=== PATIENT | male | born 1975 | race Caucasian/White ===

== ENCOUNTER 2018-05-10 20:20 | Emergency (ER) | payer BC ==
[~2018-05-10] VITALS: Ht 177.8 cm; Wt 124.7 kg
[2018-05-10] MEDS ORDERED: HYDROMORPHONE 2MG/ML 2 MG/ML ML IM STA (20:33)
[2018-05-10] MEDS ORDERED: ONDANSETRON HCL 4 MG ORAL DISINTEGRATING TAB PO ONE (21:15)
== END 2018-05-10 22:31 | disposition home or self-care (01) ==
LOC: ER 20:20
DX: M79.672 Pain in left foot (principal); M06.872 Other specified rheumatoid arthritis, left ankle and foot; M10.9 Gout, unspecified; R26.2 Difficulty in walking, not elsewhere classified; K51.90 Ulcerative colitis, unspecified, without complications; L40.9 Psoriasis, unspecified
CPT/HCPCS: 96372; 99282; J1170

== ENCOUNTER 2024-11-04 08:06 | Inpatient (IN) | payer OTHER ==
[~2024-11-04] VITALS: Ht 177.8 cm; Wt 124.7 kg
[2024-11-04] VITALS (7 sets, daily range): BP systolic 106–113; BP diastolic 72–76; PULSE 74–90; RESP 14–20; TEMP 98–99.2; O2SAT 96–100
[2024-11-04 08:36] LABS: BASOPHILS # (AUTO) 0.1 (0.0-0.1); BASOPHILS % 0.7 % (0.0-1.0); EOSINOPHILS % 0.1 % (0.0-6.0); HEMATOCRIT 47.2 % (38.2-49.6); HEMOGLOBIN 16.5 g/dL (14.0-18.0); LYMPHOCYTES # (AUTO) 0.9 (1.0-3.2); LYMPHOCYTES % 5.4 % (18.0-39.1); MEAN CORPUSCULAR HEMOGLOBIN 32.9 pg (28-32); MEAN CORPUSCULAR VOLUME 94.2 fL (81-99); MONOCYTES # (AUTO) 1.1 (0.2-0.8); NEUTROPHILS # (AUTO) 12.9 (2.1-6.9); NEUTROPHILS % 80.3 % (38.7-80.0); PLATELET COUNT 307 x10e3/uL (140-360); RED BLOOD COUNT 5.01 x10e6/uL (4.3-5.7); RED CELL DISTRIBUTION WIDTH 12.9 % (11.7-14.4); WHITE BLOOD COUNT 15.99 x10e3/uL (4.8-10.8)
[2024-11-04] MEDS ORDERED: LACTATED RINGER'S 3,000 ML ONE (08:38)
[2024-11-04] MEDS: ACETAMINOPHEN 1000 MG/100 ML IV ONE (08:43)
[2024-11-04] MEDS: CEFEPIME 2 GM in SODIUM CHLORIDE 0.9% 100 ML IV ONE (08:59)
[2024-11-04 09:00] LABS: CORONAVIRUS COVID-19 AG NEGATIVE (NEGATIVE); INFLUENZA A AG NEGATIVE (NEGATIVE); INFLUENZA B AG NEGATIVE (NEGATIVE)
[2024-11-04 09:04] LABS: ALBUMIN 4.1 g/dL (3.5-5.0); ALBUMIN/GLOBULIN RATIO 1.1 (0.8-2.0); ANION GAP 19.5 mmol/L (8-16); CALCIUM 9.2 mg/dL (8.4-10.2); CREATININE, SERUM 1.91 mg/dL (0.72-1.25); POTASSIUM 3.5 mmol/L (3.5-5.1)
[2024-11-04] MEDS: ONDANSETRON HCL INJ 2MG/ML 2ML 2 MG/ML VIAL IV STA (09:56)
[2024-11-04] MEDS: KETOROLAC TROMETHAMINE 30 MG/ML VIAL IV STA (10:23)
[2024-11-04] MEDS ORDERED: NEBIVOLOL HCL10 MG (11:24)
[2024-11-04] MEDS ORDERED: OMEPRAZOLE20 MG (11:24)
[2024-11-04] MEDS ORDERED: RINVOQ ER15 MG (11:24)
[2024-11-04] MEDS ORDERED: PREDNISONE1 MG (11:24)
[2024-11-04] MEDS ORDERED: OLMESARTAN MEDO40 MG (11:24)
[2024-11-04] MEDS ORDERED: FEBUXOSTAT40 MG (11:24)
[2024-11-04] MEDS ORDERED: NABUMETONE750 MG (11:24)
[2024-11-04] MEDS ORDERED: ROSUVASTATIN CA10 MG (11:24)
[2024-11-04] MEDS ORDERED: PREDNISONE2.5 MG (11:30)
[2024-11-04 11:46] LABS: BILIRUBIN,URINE SMALL (NEGATIVE); CLARITY,URINE CLEAR (CLEAR); COLOR,URINE YELLOW (YELLOW); GLUCOSE, URINE NEGATIVE (NEGATIVE); KETONES,URINE 1+ (NEGATIVE); LEUKOCYTE ESTERASE ,URINE NEGATIVE (NEGATIVE); NITRITE,URINE NEGATIVE (NEGATIVE); PH,URINE 5.5 (5 - 7); PROTEIN,URINE DIPSTICK >=300 (NEGATIVE); URINE UROBILINOGEN 0.2 mg/dL (0.2 - 1)
[2024-11-04 12:17] LABS: BACTERIA,URINE MODERATE /HPF; EPITHELIAL CELLS,URINE RARE /LPF
[2024-11-04] MEDS ORDERED: POLYETHYLENE GLYCOL 3350 17 GM PACK PO PRN (13:00)
[2024-11-04] MEDS: HEPARIN SOD (PORCINE) 5,000 UNIT/ML VIAL SC SCH (14:30)
[2024-11-04] MEDS: ACETAMINOPHEN 325 MG TAB PO PRN (14:33)
[2024-11-04] MEDS: LACTATED RINGER'S 1,000 ML INJ SCH (14:56)
[2024-11-04] MEDS: METRONIDAZOLE 500MG/NS 100ML 100 ML IV SCH (14:57)
[2024-11-04 19:08] LABS: CDIFF TOX QUIK CHEK NEGATIVE (NEGATIVE)
[2024-11-04 19:11] LABS: CDIFF AG QUIK CHEK **POSITIVE** (NEGATIVE)
[2024-11-04 19:47] LABS: HIV 1&2 AB SCREEN NON-REACTIVE (NONREACTIVE); HIV- 1 P24 AG SCREEN NON-REACTIVE (NONREACTIVE)
[2024-11-04] MEDS: Vancomycin IV 1 GM in SODIUM CHLORIDE 0.9% 250ML 250 ML IV ONE (20:13)
[2024-11-04] MEDS: VANCOMYCIN HCL 125 MG CAPSULE PO SCH (20:13)
[2024-11-04] MEDS: ACYCLOVIR SODIUM 1,000 MG in SODIUM CHLORIDE 0.9% 250ML 250 ML IV SCH (23:25)
[2024-11-05] VITALS (11 sets, daily range): BP systolic 114–127; BP diastolic 64–78; PULSE 63–80; RESP 18–20; TEMP 97.9–99.1; O2SAT 96–100
[2024-11-05] MEDS: Ampicillin INJ 2 GM in SODIUM CHLORIDE 0.9% 100 ML IV SCH ×2 (01:04→12:00)
[2024-11-05 08:24] LABS: BASOPHILS % 0.3 % (0.0-1.0); EOSINOPHILS % 0.3 % (0.0-6.0); HEMATOCRIT 36.2 % (38.2-49.6); HEMOGLOBIN 12.4 g/dL (14.0-18.0); LYMPHOCYTES # (AUTO) 0.7 (1.0-3.2); LYMPHOCYTES % 8.5 % (18.0-39.1); MEAN CORPUSCULAR HEMOGLOBIN 32.8 pg (28-32); MEAN CORPUSCULAR HGB CONC 34.3 g/dL (31-35); MEAN CORPUSCULAR VOLUME 95.8 fL (81-99); MONOCYTES # (AUTO) 0.9 (0.2-0.8); MONOCYTES % 10.1 % (4.4-11.3); NEUTROPHILS # (AUTO) 6.8 (2.1-6.9); NEUTROPHILS % 78.3 % (38.7-80.0); PLATELET COUNT 196 x10e3/uL (140-360); RED BLOOD COUNT 3.78 x10e6/uL (4.3-5.7); RED CELL DISTRIBUTION WIDTH 13.2 % (11.7-14.4); WHITE BLOOD COUNT 8.72 x10e3/uL (4.8-10.8)
[2024-11-05 08:45] LABS: ALBUMIN 2.9 g/dL (3.5-5.0); ANION GAP 15.9 mmol/L (8-16); BILIRUBIN,TOTAL 0.5 mg/dL (0.2-1.2); CREATININE, SERUM 1.17 mg/dL (0.72-1.25); MAGNESIUM 1.7 MG/DL (1.3-2.1); POTASSIUM 3.9 mmol/L (3.5-5.1); TOTAL PROTEIN 5.8 g/dL (6.5-8.1)
[2024-11-05] MEDS ORDERED: DOCUSATE SODIUM 100 MG CAP PO SCH (09:00)
[2024-11-05] MEDS ORDERED: Vancomycin IV 1 GM in SODIUM CHLORIDE 0.9% 250ML 250 ML IV SCH (12:00)
[2024-11-05] MEDS: KETOROLAC TROMETHAMINE 30 MG/ML VIAL IV PRN (12:12)
[2024-11-05] MEDS: ACYCLOVIR SODIUM 750 MG in SODIUM CHLORIDE 0.9% 250ML 250 ML IV SCH (13:19)
[2024-11-05] MEDS: Vancomycin IV 1 GM in SODIUM CHLORIDE 0.9% 250ML 250 ML IV SCH (15:43)
[2024-11-05] MEDS: CEFTRIAXONE 2 GM in SODIUM CHLORIDE 0.9% 100 ML IV SCH (21:22)
[2024-11-06 03:20] VITALS: BP 108/53; PULSE 63; RESP 18; TEMP 98; O2SAT 99
[2024-11-06 06:22] LABS: BASOPHILS % 0.5 % (0.0-1.0); EOSINOPHILS # (AUTO) 0.1 (0.0-0.4); HEMATOCRIT 33.8 % (38.2-49.6); HEMOGLOBIN 11.7 g/dL (14.0-18.0); LYMPHOCYTES % 15.9 % (18.0-39.1); MEAN CORPUSCULAR HEMOGLOBIN 33.5 pg (28-32); MEAN CORPUSCULAR HGB CONC 34.6 g/dL (31-35); MEAN CORPUSCULAR VOLUME 96.8 fL (81-99); MONOCYTES # (AUTO) 0.7 (0.2-0.8); MONOCYTES % 12.2 % (4.4-11.3); NEUTROPHILS # (AUTO) 4.1 (2.1-6.9); NEUTROPHILS % 67.9 % (38.7-80.0); PLATELET COUNT 179 x10e3/uL (140-360); RED BLOOD COUNT 3.49 x10e6/uL (4.3-5.7); WHITE BLOOD COUNT 5.98 x10e3/uL (4.8-10.8)
[2024-11-06 07:04] LABS: ANION GAP 12.7 mmol/L (8-16); BILIRUBIN,TOTAL 0.3 mg/dL (0.2-1.2); CALCIUM 7.9 mg/dL (8.4-10.2); CREATININE, SERUM 0.86 mg/dL (0.72-1.25); MAGNESIUM 1.9 MG/DL (1.3-2.1); POTASSIUM 3.7 mmol/L (3.5-5.1); TOTAL PROTEIN 5.2 g/dL (6.5-8.1)
[2024-11-06 07:29] LABS: ALBUMIN 2.6 g/dL (3.5-5.0)
[2024-11-06 08:00] VITALS: BP 111/72; PULSE 66; RESP 21; TEMP 98.3; O2SAT 97
[2024-11-06 09:00] VITALS: BP 111/72; PULSE 66; RESP 21; TEMP 98.3; O2SAT 97
[2024-11-06] MEDS: LACTATED RINGER'S 1,000 ML ONE (09:21)
[2024-11-06 12:00] VITALS: BP 130/79; PULSE 62; RESP 20; TEMP 98.4; O2SAT 97
[2024-11-06] MEDS: ACETAMIN/BUTALBITAL/CAFFEINE TAB PO PRN (12:26)
[2024-11-06 16:00] VITALS: BP 117/80; PULSE 59; RESP 18; TEMP 98.4; O2SAT 98
[2024-11-06 20:00] VITALS: BP 117/80; PULSE 59; RESP 18; TEMP 98.4; O2SAT 98
[2024-11-07 04:10] VITALS: BP 122/68; PULSE 61; RESP 17; TEMP 98.4; O2SAT 97
[2024-11-07 06:11] LABS: BASOPHILS % 0.6 % (0.0-1.0); EOSINOPHILS # (AUTO) 0.2 (0.0-0.4); EOSINOPHILS % 3.3 % (0.0-6.0); HEMATOCRIT 35.1 % (38.2-49.6); HEMOGLOBIN 11.9 g/dL (14.0-18.0); LYMPHOCYTES # (AUTO) 1.2 (1.0-3.2); LYMPHOCYTES % 22.5 % (18.0-39.1); MEAN CORPUSCULAR HEMOGLOBIN 33.1 pg (28-32); MEAN CORPUSCULAR HGB CONC 33.9 g/dL (31-35); MEAN CORPUSCULAR VOLUME 97.5 fL (81-99); MONOCYTES # (AUTO) 0.7 (0.2-0.8); MONOCYTES % 13.7 % (4.4-11.3); NEUTROPHILS % 58.9 % (38.7-80.0); PLATELET COUNT 215 x10e3/uL (140-360); RED CELL DISTRIBUTION WIDTH 12.9 % (11.7-14.4); WHITE BLOOD COUNT 5.12 x10e3/uL (4.8-10.8)
[2024-11-07 06:36] LABS: ALANINE AMINOTRANSFERASE 59 IU/L (0-55); ALBUMIN 2.8 g/dL (3.5-5.0); ALKALINE PHOSPHATASE 27 IU/L (40-150); ANION GAP 13.6 mmol/L (8-16); BILIRUBIN,TOTAL 0.4 mg/dL (0.2-1.2); BLOOD UREA NITROGEN < 5 mg/dL (7-26); CALCIUM 8.4 mg/dL (8.4-10.2); CARBON DIOXIDE 21 mmol/L (22-29); CHLORIDE 110 mmol/L (98-107); CREATININE, SERUM 0.84 mg/dL (0.72-1.25); EST GLOMERULAR FILTRATION RATE 108 ML/MIN (>=60); GLUCOSE 87 mg/dL (74-118); POTASSIUM 3.6 mmol/L (3.5-5.1); SODIUM 141 mmol/L (136-145); TOTAL PROTEIN 5.7 g/dL (6.5-8.1)
[2024-11-07 06:38] LABS: BUN/CREATININE RATIO 6 (6-25)
[2024-11-07 08:10] VITALS: BP 118/78; PULSE 64; RESP 18; TEMP 98.6; O2SAT 97
[2024-11-07 11:20] VITALS: BP 122/62; PULSE 60; RESP 18; TEMP 98.1; O2SAT 97
[2024-11-07 15:50] VITALS: BP 130/84; PULSE 62; RESP 18; TEMP 97.9; O2SAT 100
[2024-11-07 20:00] VITALS: BP 136/90; PULSE 63; RESP 18; TEMP 98.1; O2SAT 100
[2024-11-08] VITALS: BP 137/70; PULSE 65; RESP 18; TEMP 98.9; O2SAT 100
[2024-11-08 04:00] VITALS: BP 138/69; PULSE 68; RESP 20; TEMP 98.2; O2SAT 100
[2024-11-08 05:36] LABS: BASOPHILS % 0.3 % (0.0-1.0); EOSINOPHILS # (AUTO) 0.2 (0.0-0.4); EOSINOPHILS % 2.2 % (0.0-6.0); HEMATOCRIT 32.3 % (38.2-49.6); HEMOGLOBIN 10.9 g/dL (14.0-18.0); LYMPHOCYTES % 14.3 % (18.0-39.1); MEAN CORPUSCULAR HEMOGLOBIN 32.5 pg (28-32); MEAN CORPUSCULAR HGB CONC 33.7 g/dL (31-35); MEAN CORPUSCULAR VOLUME 96.4 fL (81-99); MONOCYTES # (AUTO) 0.9 (0.2-0.8); MONOCYTES % 12.7 % (4.4-11.3); NEUTROPHILS % 69.7 % (38.7-80.0); PLATELET COUNT 208 x10e3/uL (140-360); RED BLOOD COUNT 3.35 x10e6/uL (4.3-5.7); RED CELL DISTRIBUTION WIDTH 12.8 % (11.7-14.4); WHITE BLOOD COUNT 7.15 x10e3/uL (4.8-10.8)
[2024-11-08 06:17] LABS: ALANINE AMINOTRANSFERASE 55 IU/L (0-55); ALBUMIN 2.7 g/dL (3.5-5.0); ALKALINE PHOSPHATASE 32 IU/L (40-150); ANION GAP 12.2 mmol/L (8-16); BILIRUBIN,TOTAL 0.6 mg/dL (0.2-1.2); BLOOD UREA NITROGEN < 5 mg/dL (7-26); CALCIUM 8.1 mg/dL (8.4-10.2); CARBON DIOXIDE 22 mmol/L (22-29); CHLORIDE 106 mmol/L (98-107); EST GLOMERULAR FILTRATION RATE 110 ML/MIN (>=60); GLUCOSE 98 mg/dL (74-118); SODIUM 137 mmol/L (136-145); TOTAL PROTEIN 5.5 g/dL (6.5-8.1)
[2024-11-08 06:21] LABS: POTASSIUM 3.2 mmol/L (3.5-5.1)
[2024-11-08 06:22] LABS: BUN/CREATININE RATIO 6 (6-25)
[2024-11-08] MEDS: POTASSIUM CHLORIDE 10MEQ EA PO ONE (08:37)
[2024-11-08 09:07] VITALS: BP 135/87; PULSE 71; RESP 20; TEMP 99.1; O2SAT 97
[2024-11-08 10:00] LABS: INR 0.95; PROTHROMBIN TIME 13.3 seconds (11.9-14.5)
[2024-11-08 10:39] VITALS: BP 135/87; PULSE 71; RESP 20; TEMP 99.1; O2SAT 97
[2024-11-08 10:56] LABS: HEPATITIS A ANTIBODY IGM (P) Negative; HEPATITIS B CORE AB TOTAL Negative; HEPATITIS B CORE IGM (P) Negative; HEPATITIS B SURFACE AG (P) Negative
[2024-11-08 10:57] LABS: HEPATITIS C ANTIBODY Non Reactive
[2024-11-08] MEDS ORDERED: LIDOCAINE HCL 1% 30ML-PF VIAL ONE (11:16)
[2024-11-08] MEDS ORDERED: DICLOFENAC SOD 1% GEL 100 GM TUBE TP PRN (11:45)
[2024-11-08] MEDS ORDERED: Morphine 4mg INJECTION 4 MG/ML INJ IV PRN (13:30)
[2024-11-08] MEDS: ONDANSETRON HCL INJ 2MG/ML 2ML 2 MG/ML VIAL IV PRN (13:48)
[2024-11-08] MEDS: HYDROMORPHONE 2MG/ML IV PRN (13:49)
[2024-11-08 16:35] VITALS: BP 138/81; PULSE 81; RESP 20; TEMP 98.6; O2SAT 98
[2024-11-08] MEDS: PREDNISONE 20 MG TAB PO ONE ×2 (18:07→20:21)
[2024-11-08 20:00] VITALS: BP 143/89; PULSE 81; RESP 18; TEMP 98.3; O2SAT 97
[2024-11-09] VITALS (7 sets, daily range): BP systolic 118–143; BP diastolic 69–81; PULSE 66–79; RESP 17–20; TEMP 97.2–99.4; O2SAT 93–98
[2024-11-09 06:02] LABS: BASOPHILS % 0.2 % (0.0-1.0); HEMATOCRIT 33.4 % (38.2-49.6); HEMOGLOBIN 11.6 g/dL (14.0-18.0); LYMPHOCYTES # (AUTO) 0.5 (1.0-3.2); LYMPHOCYTES % 3.4 % (18.0-39.1); MEAN CORPUSCULAR HEMOGLOBIN 33.2 pg (28-32); MEAN CORPUSCULAR HGB CONC 34.7 g/dL (31-35); MEAN CORPUSCULAR VOLUME 95.7 fL (81-99); MONOCYTES # (AUTO) 0.6 (0.2-0.8); MONOCYTES % 4.4 % (4.4-11.3); NEUTROPHILS # (AUTO) 12.4 (2.1-6.9); NEUTROPHILS % 90.6 % (38.7-80.0); PLATELET COUNT 211 x10e3/uL (140-360); RED BLOOD COUNT 3.49 x10e6/uL (4.3-5.7); RED CELL DISTRIBUTION WIDTH 12.6 % (11.7-14.4); WHITE BLOOD COUNT 13.65 x10e3/uL (4.8-10.8)
[2024-11-09 06:40] LABS: ANION GAP 14.1 mmol/L (8-16); BLOOD UREA NITROGEN < 5 mg/dL (7-26); CALCIUM 8.4 mg/dL (8.4-10.2); CARBON DIOXIDE 20 mmol/L (22-29); CHLORIDE 103 mmol/L (98-107); CREATININE, SERUM 0.86 mg/dL (0.72-1.25); EST GLOMERULAR FILTRATION RATE 107 ML/MIN (>=60); GLUCOSE 165 mg/dL (74-118); MAGNESIUM 1.4 MG/DL (1.3-2.1); POTASSIUM 4.1 mmol/L (3.5-5.1); SODIUM 133 mmol/L (136-145)
[2024-11-09 06:41] LABS: BUN/CREATININE RATIO 6 (6-25); CALCIUM IONIZED 1.1 mmol/L (1.09-1.30)
[2024-11-09 09:19] LABS: ABG HCO3 22 mmol/L (22-26); ABG PCO2 35 mmHg (35-45); ABG PH 7.39 (7.35-7.45); ABG PO2 178 mmHg (80-105); ABG TCO2 23
[2024-11-09] MEDS: PREDNISONE 20 MG TAB PO SCH (09:22)
[2024-11-09] MEDS ORDERED: LIDOCAINE HCL 1% 30ML-PF VIAL ONE (11:30)
[2024-11-09] MEDS ORDERED: MIDAZOLAM HCL 2 MG/2 ML VIAL ONE ×2 (11:39→13:28)
[2024-11-09] MEDS ORDERED: FENTANYL CITRATE/PF 100MCG/2 ML INJ ONE ×2 (11:39→13:28)
[2024-11-09] MEDS ORDERED: SODIUM CHLORIDE 0.9% 500ML 500 ML ONE (11:39)
[2024-11-09] MEDS: LIDOCAINE HCL 2% LOCAL 20 ML VIAL INJ ONE (12:27)
[2024-11-09] MEDS: DEXAMETHASONE 10MG/ML PF INJ IV ONE (12:28)
[2024-11-09] MEDS: MAGNESIUM SULFATE 2GM/50ML 50 ML IV ONE (14:10)
[2024-11-09 14:58] LABS: TOTAL PROTEIN,CSF 81.8 mg/dL (15-40)
[2024-11-09 15:13] LABS: APPEARANCE,CSF HAZY (CLEAR)
[2024-11-09 15:14] LABS: COLOR,CSF RED (COLORLESS); TUBE NUMBER 3
[2024-11-09 15:30] LABS: LYMPHOCYTES,CSF 28 % (40-80); MONOCYTES,CSF 10 %; NEUTROPHILS,CSF 62 % (0-6); TOTAL CELLS COUNTED (DIFF) 50
[2024-11-09 15:33] LABS: WHITE BLOOD CELL,CSF 8 cells/uL (0-5)
[2024-11-09 15:34] LABS: RED BLOOD CELL,CSF 2000 cells/uL (0-10)
[2024-11-09] MEDS: ACYCLOVIR SODIUM INJ 1,000 MG in SODIUM CHLORIDE 0.9% 250ML 250 ML IV SCH (21:35)
[2024-11-10] VITALS (7 sets, daily range): BP systolic 122–149; BP diastolic 65–82; PULSE 51–71; RESP 18–20; TEMP 97.7–98.4; O2SAT 97–100
[2024-11-10 05:45] LABS: BASOPHILS % 0.2 % (0.0-1.0); EOSINOPHILS % 0.1 % (0.0-6.0); HEMATOCRIT 32.9 % (38.2-49.6); HEMOGLOBIN 11.3 g/dL (14.0-18.0); LYMPHOCYTES # (AUTO) 0.9 (1.0-3.2); LYMPHOCYTES % 4.6 % (18.0-39.1); MEAN CORPUSCULAR HEMOGLOBIN 33.3 pg (28-32); MEAN CORPUSCULAR HGB CONC 34.3 g/dL (31-35); MEAN CORPUSCULAR VOLUME 97.1 fL (81-99); MONOCYTES # (AUTO) 0.9 (0.2-0.8); MONOCYTES % 4.7 % (4.4-11.3); NEUTROPHILS # (AUTO) 16.7 (2.1-6.9); NEUTROPHILS % 88.8 % (38.7-80.0); PLATELET COUNT 248 x10e3/uL (140-360); RED BLOOD COUNT 3.39 x10e6/uL (4.3-5.7); RED CELL DISTRIBUTION WIDTH 12.6 % (11.7-14.4); WHITE BLOOD COUNT 18.77 x10e3/uL (4.8-10.8)
[2024-11-10 06:07] LABS: ALBUMIN 2.8 g/dL (3.5-5.0); ALBUMIN/GLOBULIN RATIO 0.8 (0.8-2.0); ANION GAP 16.6 mmol/L (8-16); CALCIUM 8.2 mg/dL (8.4-10.2); CREATININE, SERUM 0.88 mg/dL (0.72-1.25); MAGNESIUM 1.9 MG/DL (1.3-2.1); POTASSIUM 3.6 mmol/L (3.5-5.1); TOTAL PROTEIN 6.2 g/dL (6.5-8.1)
[2024-11-10 06:24] LABS: BILIRUBIN,TOTAL 0.2 mg/dL (0.2-1.2)
[2024-11-10] MEDS: FEBUXOSTAT 80 MG TAB PO SCH (08:39)
[2024-11-10] MEDS: KETOROLAC TROMETHAMINE 30 MG/ML VIAL IV PRN (15:17)
[2024-11-11] VITALS (7 sets, daily range): BP systolic 112–157; BP diastolic 59–85; PULSE 50–58; RESP 17–19; TEMP 97.7–98.2; O2SAT 96–100
[2024-11-11 06:45] LABS: BASOPHILS % 0.1 % (0.0-1.0); EOSINOPHILS % 0.1 % (0.0-6.0); HEMATOCRIT 31.1 % (38.2-49.6); HEMOGLOBIN 10.5 g/dL (14.0-18.0); LYMPHOCYTES % 6.2 % (18.0-39.1); MEAN CORPUSCULAR HEMOGLOBIN 33.1 pg (28-32); MEAN CORPUSCULAR HGB CONC 33.8 g/dL (31-35); MEAN CORPUSCULAR VOLUME 98.1 fL (81-99); MONOCYTES # (AUTO) 1.2 (0.2-0.8); MONOCYTES % 7.3 % (4.4-11.3); NEUTROPHILS # (AUTO) 13.1 (2.1-6.9); NEUTROPHILS % 80.6 % (38.7-80.0); PLATELET COUNT 307 x10e3/uL (140-360); RED BLOOD COUNT 3.17 x10e6/uL (4.3-5.7); RED CELL DISTRIBUTION WIDTH 12.8 % (11.7-14.4)
[2024-11-11 06:53] LABS: ANION GAP 11.9 mmol/L (8-16); CALCIUM 8.2 mg/dL (8.4-10.2); CREATININE, SERUM 0.86 mg/dL (0.72-1.25); POTASSIUM 3.9 mmol/L (3.5-5.1)
[2024-11-11 10:06] LABS: BAND NEUTROPHILS % (MANUAL) 2 %; LYMPHOCYTES % (MANUAL) 13 % (19-48); METAMYELOCYTES % (MANUAL) 1 % (0-0); MONOCYTES % (MANUAL) 1 % (3.4-9.0); MYELOCYTES % (MANUAL) 2 % (0-0); NEUTROPHILS % (MANUAL) 81 % (40-74); PLATELET ESTIMATE ADEQUATE; PLATELET MORPHOLOGY COMMENT NORMAL; RBC MORPHOLOGY COMMENT NORMAL
[2024-11-11 13:12] LABS: WEST NILE VIRUS IGG CSF Negative (Negative)
[2024-11-11 13:36] LABS: WEST NILE VIRUS IGM CSF Negative (Negative)
[2024-11-11 15:13] LABS: IGG/ALB RATIO CSF 0.18 (0.00-0.25); SYNTHESIS RATE IGG CSF 19.8 mg/day (-9.9 TO +3.3)
[2024-11-11 15:17] LABS: CSF/SERUM ALBUMIN INDEX 14 (0-8)
[2024-11-11 15:18] LABS: VDRL CSF Non Reactive (Non Rea:<1:1)
[2024-11-12] VITALS (8 sets, daily range): BP systolic 113–180; BP diastolic 53–91; PULSE 50–73; RESP 17–20; TEMP 97.3–98.3; O2SAT 95–98
[2024-11-12 05:53] LABS: BASOPHILS # (AUTO) 0.1 (0.0-0.1); BASOPHILS % 0.3 % (0.0-1.0); HEMOGLOBIN 10.7 g/dL (14.0-18.0); LYMPHOCYTES # (AUTO) 1.6 (1.0-3.2); LYMPHOCYTES % 9.5 % (18.0-39.1); MEAN CORPUSCULAR HEMOGLOBIN 32.8 pg (28-32); MEAN CORPUSCULAR HGB CONC 33.4 g/dL (31-35); MEAN CORPUSCULAR VOLUME 98.2 fL (81-99); MONOCYTES # (AUTO) 1.3 (0.2-0.8); MONOCYTES % 7.9 % (4.4-11.3); NEUTROPHILS # (AUTO) 12.1 (2.1-6.9); NEUTROPHILS % 73.8 % (38.7-80.0); PLATELET COUNT 359 x10e3/uL (140-360); RED BLOOD COUNT 3.26 x10e6/uL (4.3-5.7); RED CELL DISTRIBUTION WIDTH 12.8 % (11.7-14.4); WHITE BLOOD COUNT 16.44 x10e3/uL (4.8-10.8)
[2024-11-12 06:21] LABS: ANION GAP 10.8 mmol/L (8-16); CREATININE, SERUM 0.81 mg/dL (0.72-1.25); POTASSIUM 3.8 mmol/L (3.5-5.1)
[2024-11-12] MEDS: HYDRALAZINE HCL 20 MG/ML VIAL IV PRN (13:28)
[2024-11-12 14:06] LABS: LYME PCR CSF Negative (Negative)
[2024-11-12] MEDS: VANCOMYCIN HCL 125 MG CAPSULE PO SCH (15:20)
[2024-11-12 17:13] LABS: HSV 1 BY PCR Negative; HSV 2 BY PCR Negative
[2024-11-13 03:37] VITALS: BP 218/103; PULSE 81; RESP 17; TEMP 98.1; O2SAT 96
[2024-11-13 04:20] VITALS: BP 190/89; PULSE 59
[2024-11-13] MEDS: HYDRALAZINE HCL 20 MG/ML VIAL IV STA (05:56)
[2024-11-13 06:33] LABS: BASOPHILS # (AUTO) 0.1 (0.0-0.1); BASOPHILS % 0.5 % (0.0-1.0); EOSINOPHILS % 0.1 % (0.0-6.0); HEMATOCRIT 32.2 % (38.2-49.6); LYMPHOCYTES # (AUTO) 1.4 (1.0-3.2); LYMPHOCYTES % 9.5 % (18.0-39.1); MEAN CORPUSCULAR HEMOGLOBIN 32.9 pg (28-32); MEAN CORPUSCULAR HGB CONC 34.2 g/dL (31-35); MEAN CORPUSCULAR VOLUME 96.4 fL (81-99); MONOCYTES % 6.7 % (4.4-11.3); NEUTROPHILS # (AUTO) 10.9 (2.1-6.9); NEUTROPHILS % 72.6 % (38.7-80.0); PLATELET COUNT 358 x10e3/uL (140-360); RED BLOOD COUNT 3.34 x10e6/uL (4.3-5.7); RED CELL DISTRIBUTION WIDTH 12.7 % (11.7-14.4); WHITE BLOOD COUNT 15.03 x10e3/uL (4.8-10.8)
[2024-11-13 06:50] LABS: ALBUMIN 2.6 g/dL (3.5-5.0); ALBUMIN/GLOBULIN RATIO 0.8 (0.8-2.0); ANION GAP 12.8 mmol/L (8-16); BILIRUBIN,TOTAL 0.4 mg/dL (0.2-1.2); CALCIUM 8.5 mg/dL (8.4-10.2); CREATININE, SERUM 0.81 mg/dL (0.72-1.25); MAGNESIUM 1.9 MG/DL (1.3-2.1); POTASSIUM 3.8 mmol/L (3.5-5.1); TOTAL PROTEIN 5.8 g/dL (6.5-8.1)
[2024-11-13 09:57] VITALS: BP 151/78; PULSE 57; RESP 17; TEMP 98.3; O2SAT 98
[2024-11-13 10:36] VITALS: BP 151/78; PULSE 57; RESP 17; TEMP 98.3; O2SAT 98
[2024-11-13 12:09] LABS: BAND NEUTROPHILS % (MANUAL) 1 %; EOSINOPHILS % (MANUAL) 3 % (0-7); LYMPHOCYTES % (MANUAL) 17 % (19-48); METAMYELOCYTES % (MANUAL) 1 % (0-0); MONOCYTES % (MANUAL) 2 % (3.4-9.0); NEUTROPHILS % (MANUAL) 72 % (40-74); REACTIVE LYMPHOCYTES 1
[2024-11-13 12:10] LABS: MYELOCYTES % (MANUAL) 3 % (0-0); PLATELET ESTIMATE ADEQUATE; PLATELET MORPHOLOGY COMMENT NORMAL
[2024-11-13 14:03] VITALS: BP 128/70; PULSE 54; RESP 17; TEMP 98.1; O2SAT 100
[2024-11-13 16:00] VITALS: BP 139/75; PULSE 48; RESP 18; TEMP 98.2; O2SAT 98
[2024-11-13] MEDS ORDERED: VANCOMYCIN HCL125 MG PO (18:23)
[2024-11-13] MEDS ORDERED: KETOROLAC TROME10 MG PO (18:23)
[2024-11-13] MEDS ORDERED: NURTEC ODT75 MG PO (18:23)
[2024-11-13] MEDS ORDERED: HYDRALAZINE HCL25 MG PO (18:29)
[2024-11-15 08:09] LABS: CRYPTOCOCCUS ANTIGEN CSF Negative
== END 2024-11-13 19:45 | disposition home or self-care (01) | DRG 97 ==
LOC: ER 08:18 → ERHOLD 12:24 → MED/SURG2 13:43
PROVIDERS: ADMIT Internal Medicine; ATTEND Internal Medicine
PROC: 009U3ZX Drainage of Spinal Canal, Percutaneous Approach, Diagnostic (ICD-10-PCS; principal; 2024-11-08)
PROC: B01B1ZZ Fluoroscopy of Spinal Cord using Low Osmolar Contrast (ICD-10-PCS; 2024-11-08)
PROC: 3E0U33Z Introduction of Anti-inflammatory into Joints, Percutaneous Approach (ICD-10-PCS; 2024-11-09)
PROC: 3E0U3BZ Introduction of Anesthetic Agent into Joints, Percutaneous Approach (ICD-10-PCS; 2024-11-09)
PROC: 009U3ZX Drainage of Spinal Canal, Percutaneous Approach, Diagnostic (ICD-10-PCS; 2024-11-09)
PROC: B01B1ZZ Fluoroscopy of Spinal Cord using Low Osmolar Contrast (ICD-10-PCS; 2024-11-09)
PROC: 02HV33Z Insertion of Infusion Device into Superior Vena Cava, Percutaneous Approach (ICD-10-PCS; 2024-11-10)
PROC: B548ZZA Ultrasonography of Superior Vena Cava, Guidance (ICD-10-PCS; 2024-11-10)
DX: G04.90 Encephalitis and encephalomyelitis, unspecified (principal); G93.41 Metabolic encephalopathy; N17.9 Acute kidney failure, unspecified; D84.821 Immunodeficiency due to drugs; A09 Infectious gastroenteritis and colitis, unspecified; K52.1 Toxic gastroenteritis and colitis; K50.919 Crohn's disease, unspecified, with unspecified complications; G43.909 Migraine, unspecified, not intractable, without status migrainosus; E86.0 Dehydration; L40.50 Arthropathic psoriasis, unspecified; I10 Essential (primary) hypertension; N30.90 Cystitis, unspecified without hematuria; M06.9 Rheumatoid arthritis, unspecified; I95.9 Hypotension, unspecified; T50.995A Adverse effect of other drugs, medicaments and biological substances, initial encounter; Y92.009 Unspecified place in unspecified non-institutional (private) residence as the place of occurrence of the external cause; E66.9 Obesity, unspecified; Z68.39 Body mass index [BMI] 39.0-39.9, adult; Z71.3 Dietary counseling and surveillance; G47.33 Obstructive sleep apnea (adult) (pediatric); M10.9 Gout, unspecified; E78.5 Hyperlipidemia, unspecified; R00.1 Bradycardia, unspecified; D72.829 Elevated white blood cell count, unspecified; T38.0X5A Adverse effect of glucocorticoids and synthetic analogues, initial encounter; T36.0X5A Adverse effect of penicillins, initial encounter; Y92.230 Patient room in hospital as the place of occurrence of the external cause; Z11.52 Encounter for screening for COVID-19; Z98.1 Arthrodesis status; Z79.52 Long term (current) use of systemic steroids; Z79.899 Other long term (current) drug therapy
CPT/HCPCS: 36415; 36569; 62328; 70450; 70551; 71045; 74176; 74470; 80048; 80053; 80202; 81001; 82040; 82140; 82784; 82805; 82945; 83518; 83605; 83630; 83735; 83916; 83993; 84157; 84443; 85025; 85610; 86592; 86704; 86789; 87040; 87045; 87070; 87086; 87177; 87205; 87324; 87327; 87328; 87390; 87449; 87476; 87529; 89051; 93005; 94799; 99152; 99284; G0433; G0435; J0360; J0692; J0696; J1171; J1644; J1885; J2003; J2250; J2405; J2470; J3475; J7040; J7050; J7512

== ENCOUNTER 2024-12-27 09:34 | Inpatient (IN) | payer OTHER ==
[2024-12-27] VITALS (8 sets, daily range): BP systolic 119–148; BP diastolic 56–80; PULSE 59–71; RESP 16–20; TEMP 97.7–98.7; O2SAT 98–100
[~2024-12-27] VITALS: Ht 177.8 cm; Wt 140.6 kg
[~2024-12-27 09:34] MED LIST: FEBUXOSTAT40 MG; HYDRALAZINE HCL25 MG PO; KETOROLAC TROME10 MG PO; NABUMETONE750 MG; NEBIVOLOL HCL10 MG; NURTEC ODT75 MG PO; OLMESARTAN MEDO40 MG; OMEPRAZOLE20 MG; PREDNISONE1 MG; PREDNISONE2.5 MG; RINVOQ ER15 MG; ROSUVASTATIN CA10 MG; VANCOMYCIN HCL125 MG PO
[2024-12-27 10:40] LABS: BASOPHILS # (AUTO) 0.1 (0.0-0.1); BASOPHILS % 0.5 % (0.0-1.0); EOSINOPHILS % 0.3 % (0.0-6.0); HEMATOCRIT 37.7 % (38.2-49.6); LYMPHOCYTES # (AUTO) 1.2 (1.0-3.2); LYMPHOCYTES % 11.3 % (18.0-39.1); MEAN CORPUSCULAR HEMOGLOBIN 32.6 pg (28-32); MEAN CORPUSCULAR HGB CONC 34.5 g/dL (31-35); MEAN CORPUSCULAR VOLUME 94.5 fL (81-99); MONOCYTES # (AUTO) 0.8 (0.2-0.8); MONOCYTES % 6.9 % (4.4-11.3); NEUTROPHILS # (AUTO) 8.6 (2.1-6.9); NEUTROPHILS % 77.9 % (38.7-80.0); PLATELET COUNT 330 x10e3/uL (140-360); RED BLOOD COUNT 3.99 x10e6/uL (4.3-5.7); RED CELL DISTRIBUTION WIDTH 13.2 % (11.7-14.4); WHITE BLOOD COUNT 10.99 x10e3/uL (4.8-10.8)
[2024-12-27 10:47] LABS: INR 0.92; PROTHROMBIN TIME 12.9 seconds (11.9-14.5)
[2024-12-27 10:48] LABS: PARTIAL THROMBOPLASTIN TIME 32.2 seconds (23.8-35.5)
[2024-12-27 10:56] LABS: ALBUMIN 3.9 g/dL (3.5-5.0); ALBUMIN/GLOBULIN RATIO 1.2 (0.8-2.0); ANION GAP 18.2 mmol/L (8-16); BILIRUBIN,TOTAL 0.5 mg/dL (0.2-1.2); CALCIUM 9.1 mg/dL (8.4-10.2); CREATININE, SERUM 0.91 mg/dL (0.72-1.25); POTASSIUM 4.2 mmol/L (3.5-5.1); TOTAL PROTEIN 7.2 g/dL (6.5-8.1)
[2024-12-27] MEDS: SODIUM CHLORIDE 0.9% 1000ML 1,000 ML IV STA (11:04)
[2024-12-27 11:45] LABS: CLARITY,URINE CLEAR (CLEAR); COLOR,URINE YELLOW (YELLOW); LEUKOCYTE ESTERASE ,URINE NEGATIVE (NEGATIVE); NITRITE,URINE NEGATIVE (NEGATIVE); PH,URINE 6 (5 - 7); PROTEIN,URINE DIPSTICK NEGATIVE (NEGATIVE)
[2024-12-27 11:46] LABS: BILIRUBIN,URINE NEGATIVE (NEGATIVE); GLUCOSE, URINE NEGATIVE (NEGATIVE); KETONES,URINE NEGATIVE (NEGATIVE); URINE UROBILINOGEN 0.2 mg/dL (0.2 - 1)
[2024-12-27 11:59] LABS: BACTERIA,URINE RARE /HPF; RBC,URINE 0-5 /HPF (0-5); WBC,URINE (MAN) 0-5 /HPF (0-5)
[2024-12-27] MEDS: SODIUM CHLORIDE 0.9% 1000ML 1,000 ML IV SCH (12:55)
[2024-12-27 13:17] LABS: TROPONIN I 0.016 ng/mL (0-0.300)
[2024-12-27] MEDS ORDERED: COLCHICINE0.6 M1 PO (15:25)
[2024-12-27] MEDS ORDERED: FENTANYL CITRATE/PF 100MCG/2 ML INJ ONE (15:53)
[2024-12-27 18:16] LABS: COLOR,CSF RED (COLORLESS)
[2024-12-27 18:17] LABS: APPEARANCE,CSF CLOUDY (CLEAR); TUBE NUMBER 2
[2024-12-27] MEDS: ONDANSETRON HCL INJ 2MG/ML 2ML 2 MG/ML VIAL IV STA (18:23)
[2024-12-27] MEDS: ACETAMINOPHEN/CODEINE 300MG - 30MG TAB PO ONE (18:24)
[2024-12-27 18:56] LABS: RED BLOOD CELL,CSF 24000 cells/uL (0-10); WHITE BLOOD CELL,CSF 79 cells/uL (0-5)
[2024-12-27 21:38] LABS: NEUTROPHILS,CSF 62 % (0-6)
[2024-12-27 21:39] LABS: LEPTOMENINGEAL,CSF 0 %; TOTAL CELLS COUNTED (DIFF) 100
[2024-12-27 21:41] LABS: LYMPHOCYTES,CSF 18 % (40-80); MONOCYTES,CSF 20 %; OTHER CELLS,CSF 0 %
[2024-12-27] MEDS: ACETAMINOPHEN/CODEINE 300MG - 30MG TAB PO PRN (21:52)
[2024-12-27] MEDS: CEFTRIAXONE 2 GM in SODIUM CHLORIDE 0.9% 100 ML IV SCH (21:52)
[2024-12-27 22:30] LABS: TOTAL PROTEIN,CSF 83.1 mg/dL (15-40)
[2024-12-27] MEDS ORDERED: ACYCLOVIR SODIUM 750 MG in SODIUM CHLORIDE 0.9% 250ML 250 ML IV SCH (23:00)
[2024-12-27] MEDS: TRAZODONE HCL 50 MG TAB PO SCH (23:49)
[2024-12-28] VITALS (8 sets, daily range): BP systolic 101–165; BP diastolic 66–93; PULSE 63–70; RESP 18–20; TEMP 97.1–98.9; O2SAT 94–100
[2024-12-28] MEDS ORDERED: BISACODYL 10 MG SUPP PR PRN (00:15)
[2024-12-28] MEDS ORDERED: POLYETHYLENE GLYCOL 3350 17 GM PACK PO PRN (00:15)
[2024-12-28] MEDS ORDERED: Ampicillin INJ 1 GM Vial ONE ×2 (00:29→00:32)
[2024-12-28] MEDS: Ampicillin INJ 2 GM in SODIUM CHLORIDE 0.9% 100 ML IV SCH ×2 (01:13→08:44)
[2024-12-28] MEDS: ACYCLOVIR SODIUM 750 MG in SODIUM CHLORIDE 0.9% 250ML 250 ML IV SCH ×2 (02:05→22:28)
[2024-12-28 02:09] LABS: TROPONIN I 0.007 ng/mL (0-0.300)
[2024-12-28] MEDS: KETOROLAC TROMETHAMINE 30 MG/ML VIAL IV PRN (02:28)
[2024-12-28 07:15] LABS: BASOPHILS % 0.5 % (0.0-1.0); EOSINOPHILS # (AUTO) 0.1 (0.0-0.4); EOSINOPHILS % 0.7 % (0.0-6.0); HEMATOCRIT 33.8 % (38.2-49.6); HEMOGLOBIN 11.3 g/dL (14.0-18.0); LYMPHOCYTES % 22.8 % (18.0-39.1); MEAN CORPUSCULAR HEMOGLOBIN 32.6 pg (28-32); MEAN CORPUSCULAR HGB CONC 33.4 g/dL (31-35); MEAN CORPUSCULAR VOLUME 97.4 fL (81-99); MONOCYTES # (AUTO) 1.1 (0.2-0.8); MONOCYTES % 12.7 % (4.4-11.3); NEUTROPHILS # (AUTO) 5.3 (2.1-6.9); NEUTROPHILS % 61.8 % (38.7-80.0); PLATELET COUNT 271 x10e3/uL (140-360); RED BLOOD COUNT 3.47 x10e6/uL (4.3-5.7); RED CELL DISTRIBUTION WIDTH 13.5 % (11.7-14.4); WHITE BLOOD COUNT 8.56 x10e3/uL (4.8-10.8)
[2024-12-28 07:33] LABS: ALBUMIN 3.2 g/dL (3.5-5.0); ALBUMIN/GLOBULIN RATIO 1.2 (0.8-2.0); ANION GAP 12.8 mmol/L (8-16); BILIRUBIN,TOTAL 0.5 mg/dL (0.2-1.2); CALCIUM 8.4 mg/dL (8.4-10.2); CREATININE, SERUM 0.99 mg/dL (0.72-1.25); POTASSIUM 3.8 mmol/L (3.5-5.1); TOTAL PROTEIN 5.9 g/dL (6.5-8.1)
[2024-12-28 07:54] LABS: TROPONIN I 0.009 ng/mL (0-0.300)
[2024-12-28] MEDS: SODIUM CHLORIDE 0.9% 250ML 250 ML ONE (08:07)
[2024-12-28] MEDS: OLMESARTAN 20 MG TAB PO SCH (08:42)
[2024-12-28] MEDS: NEBIVOLOL 10 MG TAB PO SCH (08:43)
[2024-12-28] MEDS: PREDNISONE 5 MG TAB PO SCH (08:43)
[2024-12-28] MEDS: PANTOPRAZOLE SODIUM 20 MG TABLET.DR PO SCH (08:43)
[2024-12-28] MEDS ORDERED: COLCHICINE 0.6 MG TAB PO SCH (09:00)
[2024-12-28] MEDS ORDERED: GADOBENATE DIMEGLUMINE 1 ML IV ONE (09:30)
[2024-12-28] MEDS: COLCHICINE 0.6 MG TAB PO SCH (13:36)
[2024-12-28] MEDS: VALPROATE SOD INJ 500 MG in SODIUM CHLORIDE 0.9% 100 ML IV SCH (13:37)
[2024-12-28] MEDS: HYDROMORPHONE 2MG/ML IV PRN (13:45)
[2024-12-28] MEDS: ONDANSETRON HCL INJ 2MG/ML 2ML 2 MG/ML VIAL IV PRN (13:45)
[2024-12-28] MEDS: METHYLPREDNISOLONE SOD SUCC 40 MG/ML VIAL 1ML IV SCH (14:29)
[2024-12-28] MEDS: ACETAMINOPHEN 325 MG TAB PO PRN (19:52)
[2024-12-29] VITALS (9 sets, daily range): BP systolic 120–157; BP diastolic 67–78; PULSE 61–78; RESP 18–19; TEMP 97.1–98.5; O2SAT 95–99
[2024-12-29 05:56] LABS: BASOPHILS % 0.2 % (0.0-1.0); HEMATOCRIT 34.6 % (38.2-49.6); HEMOGLOBIN 11.8 g/dL (14.0-18.0); LYMPHOCYTES # (AUTO) 0.6 (1.0-3.2); LYMPHOCYTES % 5.6 % (18.0-39.1); MEAN CORPUSCULAR HEMOGLOBIN 32.6 pg (28-32); MEAN CORPUSCULAR HGB CONC 34.1 g/dL (31-35); MEAN CORPUSCULAR VOLUME 95.6 fL (81-99); MONOCYTES # (AUTO) 0.2 (0.2-0.8); MONOCYTES % 1.4 % (4.4-11.3); NEUTROPHILS # (AUTO) 9.9 (2.1-6.9); NEUTROPHILS % 91.8 % (38.7-80.0); PLATELET COUNT 265 x10e3/uL (140-360); RED BLOOD COUNT 3.62 x10e6/uL (4.3-5.7); RED CELL DISTRIBUTION WIDTH 12.4 % (11.7-14.4); WHITE BLOOD COUNT 10.78 x10e3/uL (4.8-10.8)
[2024-12-29 06:38] LABS: ALBUMIN 3.2 g/dL (3.5-5.0); ANION GAP 14.6 mmol/L (8-16); BILIRUBIN,TOTAL 0.4 mg/dL (0.2-1.2); CALCIUM 9.1 mg/dL (8.4-10.2); CREATININE, SERUM 0.89 mg/dL (0.72-1.25); POTASSIUM 4.6 mmol/L (3.5-5.1); TOTAL PROTEIN 6.4 g/dL (6.5-8.1)
[2024-12-29 07:13] LABS: COMPLEMENT C3 123 mg/dL (82-167); COMPLEMENT C4 24 mg/dL (12-38)
[2024-12-29 08:29] LABS: C-REACTIVE PROTEIN 6 mg/L (0-10)
[2024-12-29] MEDS ORDERED: ALLOPURINOL 100 MG TAB PO SCH (09:00)
[2024-12-29] MEDS: COLCHICINE 0.6 MG TAB PO SCH (09:41)
[2024-12-29 15:54] LABS: VDRL CSF Non Reactive (Non Rea:<1:1)
[2024-12-29 16:39] LABS: CRYPTOCOCCUS ANTIGEN CSF Negative
[2024-12-29] MEDS: METHYLPREDNISOLONE SOD SUCC 500 MG in SODIUM CHLORIDE 0.9% 100 ML IV SCH (20:51)
[2024-12-29] MEDS ORDERED: METHYLPREDNISOLONE SOD SUCC 125 MG/2ML VIAL IV SCH (21:00)
[2024-12-30 05:31] LABS: BASOPHILS % 0.2 % (0.0-1.0); HEMATOCRIT 34.9 % (38.2-49.6); HEMOGLOBIN 11.6 g/dL (14.0-18.0); LYMPHOCYTES # (AUTO) 0.6 (1.0-3.2); LYMPHOCYTES % 2.3 % (18.0-39.1); MEAN CORPUSCULAR HEMOGLOBIN 32.7 pg (28-32); MEAN CORPUSCULAR HGB CONC 33.2 g/dL (31-35); MEAN CORPUSCULAR VOLUME 98.3 fL (81-99); MONOCYTES # (AUTO) 1.2 (0.2-0.8); MONOCYTES % 4.6 % (4.4-11.3); NEUTROPHILS # (AUTO) 23.7 (2.1-6.9); NEUTROPHILS % 91.2 % (38.7-80.0); PLATELET COUNT 253 x10e3/uL (140-360); RED BLOOD COUNT 3.55 x10e6/uL (4.3-5.7); RED CELL DISTRIBUTION WIDTH 12.7 % (11.7-14.4); WHITE BLOOD COUNT 26.02 x10e3/uL (4.8-10.8)
[2024-12-30 06:03] LABS: ANION GAP 14.6 mmol/L (8-16); CALCIUM 8.5 mg/dL (8.4-10.2); CREATININE, SERUM 0.88 mg/dL (0.72-1.25); MAGNESIUM 1.9 MG/DL (1.3-2.1); POTASSIUM 4.6 mmol/L (3.5-5.1)
[2024-12-30 08:31] VITALS: BP 122/61; PULSE 63; RESP 18; TEMP 97.4; O2SAT 96
[2024-12-30 09:45] VITALS: BP 122/61; PULSE 63; RESP 18; TEMP 97.4; O2SAT 96
[2024-12-30 13:04] VITALS: BP 127/75; PULSE 67; RESP 20; TEMP 97.8; O2SAT 96
[2024-12-30 13:17] LABS: BAND NEUTROPHILS % (MANUAL) 3 %; LYMPHOCYTES % (MANUAL) 3 % (19-48); MONOCYTES % (MANUAL) 2 % (3.4-9.0); NEUTROPHILS % (MANUAL) 92 % (40-74); PLATELET ESTIMATE ADEQUATE; PLATELET MORPHOLOGY COMMENT NORMAL; RBC MORPHOLOGY COMMENT NORMAL
[2024-12-30 16:36] VITALS: BP 124/61; PULSE 72; RESP 20; TEMP 97.7; O2SAT 98
[2024-12-30 19:35] VITALS: BP 150/74; PULSE 68; RESP 18; TEMP 98.6; O2SAT 98
[2024-12-30 20:06] VITALS: BP 150/74; PULSE 68; RESP 18; TEMP 98.6; O2SAT 98
[2024-12-31] VITALS (7 sets, daily range): BP systolic 141–167; BP diastolic 68–94; PULSE 50–62; RESP 18; TEMP 97.7–98.2; O2SAT 96–98
[2024-12-31 07:16] LABS: BASOPHILS % 0.2 % (0.0-1.0); HEMATOCRIT 33.4 % (38.2-49.6); HEMOGLOBIN 11.1 g/dL (14.0-18.0); LYMPHOCYTES # (AUTO) 0.7 (1.0-3.2); LYMPHOCYTES % 3.7 % (18.0-39.1); MEAN CORPUSCULAR HEMOGLOBIN 32.4 pg (28-32); MEAN CORPUSCULAR HGB CONC 33.2 g/dL (31-35); MEAN CORPUSCULAR VOLUME 97.4 fL (81-99); MONOCYTES # (AUTO) 0.4 (0.2-0.8); MONOCYTES % 2.1 % (4.4-11.3); NEUTROPHILS # (AUTO) 17.8 (2.1-6.9); NEUTROPHILS % 92.3 % (38.7-80.0); PLATELET COUNT 230 x10e3/uL (140-360); RED BLOOD COUNT 3.43 x10e6/uL (4.3-5.7); RED CELL DISTRIBUTION WIDTH 12.6 % (11.7-14.4)
[2024-12-31 07:44] LABS: ANION GAP 13.7 mmol/L (8-16); CALCIUM 8.5 mg/dL (8.4-10.2); CREATININE, SERUM 0.86 mg/dL (0.72-1.25); POTASSIUM 4.7 mmol/L (3.5-5.1)
[2024-12-31] MEDS: PROCHLORPERAZINE EDISYLATE 5 MG/ML VIAL IV SCH (16:24)
[2024-12-31] MEDS ORDERED: PROCHLORPERAZINE EDISYLATE 5 MG/ML VIAL IV SCH (18:00)
[2025-01-01] VITALS (7 sets, daily range): BP systolic 146–195; BP diastolic 68–87; PULSE 52–84; RESP 16–20; TEMP 97–98.3; O2SAT 95–100
[2025-01-01 08:10] LABS: BASOPHILS % 0.1 % (0.0-1.0); HEMATOCRIT 33.2 % (38.2-49.6); HEMOGLOBIN 11.1 g/dL (14.0-18.0); LYMPHOCYTES # (AUTO) 0.8 (1.0-3.2); LYMPHOCYTES % 4.8 % (18.0-39.1); MEAN CORPUSCULAR HEMOGLOBIN 32.5 pg (28-32); MEAN CORPUSCULAR HGB CONC 33.4 g/dL (31-35); MEAN CORPUSCULAR VOLUME 97.1 fL (81-99); MONOCYTES # (AUTO) 0.4 (0.2-0.8); MONOCYTES % 2.5 % (4.4-11.3); NEUTROPHILS # (AUTO) 14.3 (2.1-6.9); NEUTROPHILS % 90.5 % (38.7-80.0); PLATELET COUNT 220 x10e3/uL (140-360); RED BLOOD COUNT 3.42 x10e6/uL (4.3-5.7); RED CELL DISTRIBUTION WIDTH 12.7 % (11.7-14.4); WHITE BLOOD COUNT 15.84 x10e3/uL (4.8-10.8)
[2025-01-01 08:51] LABS: ALBUMIN 2.8 g/dL (3.5-5.0); ALBUMIN/GLOBULIN RATIO 1.1 (0.8-2.0); ANION GAP 13.5 mmol/L (8-16); BILIRUBIN,TOTAL 0.3 mg/dL (0.2-1.2); CALCIUM 8.5 mg/dL (8.4-10.2); CREATININE, SERUM 0.92 mg/dL (0.72-1.25); POTASSIUM 4.5 mmol/L (3.5-5.1); TOTAL PROTEIN 5.3 g/dL (6.5-8.1)
[2025-01-01] MEDS: PROCHLORPERAZINE EDISYLATE 5 MG/ML VIAL IV PRN (21:24)
[2025-01-01] MEDS: HYDRALAZINE HCL 20 MG/ML VIAL IV PRN (21:25)
[2025-01-02] VITALS (8 sets, daily range): BP systolic 147–188; BP diastolic 68–89; PULSE 43–88; RESP 17–20; TEMP 97–98.6; O2SAT 97–100
[2025-01-02 09:27] LABS: BASOPHILS # (AUTO) 0.1 (0.0-0.1); BASOPHILS % 0.4 % (0.0-1.0); HEMATOCRIT 35.8 % (38.2-49.6); HEMOGLOBIN 12.2 g/dL (14.0-18.0); LYMPHOCYTES # (AUTO) 0.9 (1.0-3.2); LYMPHOCYTES % 5.8 % (18.0-39.1); MEAN CORPUSCULAR HEMOGLOBIN 33.1 pg (28-32); MEAN CORPUSCULAR HGB CONC 34.1 g/dL (31-35); MONOCYTES # (AUTO) 0.6 (0.2-0.8); MONOCYTES % 3.6 % (4.4-11.3); NEUTROPHILS # (AUTO) 12.8 (2.1-6.9); NEUTROPHILS % 82.6 % (38.7-80.0); PLATELET COUNT 223 x10e3/uL (140-360); RED BLOOD COUNT 3.69 x10e6/uL (4.3-5.7); RED CELL DISTRIBUTION WIDTH 12.6 % (11.7-14.4); WHITE BLOOD COUNT 15.43 x10e3/uL (4.8-10.8)
[2025-01-02 09:52] LABS: ANION GAP 16.8 mmol/L (8-16); CALCIUM 8.6 mg/dL (8.4-10.2); CREATININE, SERUM 0.87 mg/dL (0.72-1.25); POTASSIUM 3.8 mmol/L (3.5-5.1)
[2025-01-02 11:28] LABS: BAND NEUTROPHILS % (MANUAL) 12 %; LYMPHOCYTES % (MANUAL) 7 % (19-48); METAMYELOCYTES % (MANUAL) 1 % (0-0); MONOCYTES % (MANUAL) 2 % (3.4-9.0); NEUTROPHILS % (MANUAL) 78 % (40-74); NUCLEATED RED BLOOD CELLS 1; PLATELET ESTIMATE ADEQUATE; PLATELET MORPHOLOGY COMMENT NORMAL; RBC MORPHOLOGY COMMENT NORMAL
[2025-01-02] MEDS: FUROSEMIDE INJ 10 MG/ML 4 ML VIAL IV ONE (12:15)
[2025-01-02] MEDS: LIDOCAINE 4% PATCH TP SCH (12:16)
[2025-01-02] MEDS: AMLODIPINE BESYLATE 5 MG TAB PO SCH (16:00)
[2025-01-03] VITALS: BP 153/75; PULSE 55; RESP 18; TEMP 97.7; O2SAT 94
[2025-01-03 04:00] VITALS: BP 152/79; PULSE 52; RESP 17; TEMP 97.4; O2SAT 95
[2025-01-03 05:42] LABS: BASOPHILS # (AUTO) 0.1 (0.0-0.1); BASOPHILS % 0.3 % (0.0-1.0); HEMOGLOBIN 11.8 g/dL (14.0-18.0); LYMPHOCYTES # (AUTO) 0.9 (1.0-3.2); LYMPHOCYTES % 6.3 % (18.0-39.1); MEAN CORPUSCULAR HEMOGLOBIN 32.3 pg (28-32); MEAN CORPUSCULAR HGB CONC 34.7 g/dL (31-35); MEAN CORPUSCULAR VOLUME 93.2 fL (81-99); MONOCYTES # (AUTO) 0.5 (0.2-0.8); MONOCYTES % 3.6 % (4.4-11.3); NEUTROPHILS % 83.2 % (38.7-80.0); PLATELET COUNT 215 x10e3/uL (140-360); RED BLOOD COUNT 3.65 x10e6/uL (4.3-5.7); RED CELL DISTRIBUTION WIDTH 12.8 % (11.7-14.4); WHITE BLOOD COUNT 14.42 x10e3/uL (4.8-10.8)
[2025-01-03 06:12] LABS: ALBUMIN 2.7 g/dL (3.5-5.0); BILIRUBIN,TOTAL 0.4 mg/dL (0.2-1.2); CALCIUM 8.4 mg/dL (8.4-10.2); CREATININE, SERUM 0.88 mg/dL (0.72-1.25); MAGNESIUM 2.6 MG/DL (1.3-2.1); TOTAL PROTEIN 5.3 g/dL (6.5-8.1)
[2025-01-03 08:56] VITALS: BP 172/94; PULSE 48; RESP 20; TEMP 98; O2SAT 98
[2025-01-03 09:00] VITALS: BP 172/94; PULSE 48; RESP 20; TEMP 98; O2SAT 98
[2025-01-03 12:19] VITALS: BP 204/89; PULSE 45; RESP 20; TEMP 97.6; O2SAT 99
[2025-01-03 14:00] VITALS: BP 143/85
[2025-01-03] MEDS ORDERED: PREDNISONE10 MG PO (14:12)
[2025-01-03] MEDS ORDERED: PROCHLORPERAZIN10 MG PO (14:12)
== END 2025-01-03 16:20 | disposition home or self-care (01) | DRG 97 ==
LOC: ER 09:43 → ERHOLD 11:28 → MED/SURG3 13:15
PROVIDERS: ADMIT Internal Medicine; ATTEND Internal Medicine
PROC: 009U3ZX Drainage of Spinal Canal, Percutaneous Approach, Diagnostic (ICD-10-PCS; principal; 2024-12-27)
PROC: B01B1ZZ Fluoroscopy of Spinal Cord using Low Osmolar Contrast (ICD-10-PCS; 2024-12-27)
PROC: 05HB33Z Insertion of Infusion Device into Right Basilic Vein, Percutaneous Approach (ICD-10-PCS; 2024-12-29)
DX: G04.81 Other encephalitis and encephalomyelitis (principal); G93.41 Metabolic encephalopathy; K51.90 Ulcerative colitis, unspecified, without complications; D84.821 Immunodeficiency due to drugs; Z68.41 Body mass index [BMI] 40.0-44.9, adult; L40.50 Arthropathic psoriasis, unspecified; G43.119 Migraine with aura, intractable, without status migrainosus; M1A.0791 Idiopathic chronic gout, unspecified ankle and foot, with tophus (tophi); M06.9 Rheumatoid arthritis, unspecified; Z79.620 Long term (current) use of immunosuppressive biologic; I10 Essential (primary) hypertension; E78.5 Hyperlipidemia, unspecified; I95.9 Hypotension, unspecified; R00.0 Tachycardia, unspecified; D72.829 Elevated white blood cell count, unspecified; T38.0X5A Adverse effect of glucocorticoids and synthetic analogues, initial encounter; Y92.230 Patient room in hospital as the place of occurrence of the external cause; M54.81 Occipital neuralgia; G47.33 Obstructive sleep apnea (adult) (pediatric); F51.5 Nightmare disorder; E66.01 Morbid (severe) obesity due to excess calories; Z71.3 Dietary counseling and surveillance; Z71.81 Spiritual or religious counseling; Z79.52 Long term (current) use of systemic steroids; Z79.899 Other long term (current) drug therapy; Z98.1 Arthrodesis status
CPT/HCPCS: 36415; 36568; 62328; 70450; 70553; 71045; 74470; 80048; 80053; 81001; 82550; 82945; 83735; 84157; 84484; 84550; 85025; 85610; 85730; 86039; 86140; 86160; 86162; 86592; 87040; 87070; 87086; 87116; 87205; 87206; 87327; 87529; 89051; 93005; 95819; 99284; J0360; J0696; J1171; J1885; J1938; J2405; J2470; J2919; J7030; J7050; J7512